=== PATIENT | female | born 2000 | race Caucasian/White ===

== ENCOUNTER 2024-01-01 03:08 | Emergency (ER) | payer OTHER, BC, SELFPAY ==
[2024-01-01] VITALS (12 sets, daily range): BP systolic 87–140; BP diastolic 50–68; PULSE 80–126; RESP 15–20; TEMP 36.5–37.1; O2SAT 95–100; BMI 23.6
[2024-01-01 06:03] LABS: Add Manual Diff / Slide Review NO; Basophils Absolute Auto 0 /uL (0-100); Basophils Percent Auto 0.2 % (0-2); Eosinophils Absolute Auto 0 /uL (0-450); Eosinophils Percent Auto 0.2 % (2-4); Hematocrit 38.1 % (36-46); Hemoglobin 12.7 g/dL (12.0-16.0); Lymphocytes Absolute Auto 500 /uL (1100-4500); Lymphocytes Percent Auto 4.4 % (25-40); Mean Corpuscular HGB Conc 33.3 % (30-36); Mean Corpuscular Hemoglobin 28.9 PG (26-34); Mean Corpuscular Volume 86.7 fL (80-100); Monocytes Absolute Auto 600 /uL (0-900); Monocytes Percent Auto 5.1 % (3-14); Neutrophils Absolute Auto 10300 /uL (1500-7000); Neutrophils Percent Auto 90.1 % (50-75); Platelet Count 352 X10^3/uL (150-400); Red Blood Cell Count 4.39 X10^6/uL (4.0-5.2); Red Cell Distribution Width 13.7 % (11.6-14.8); White Blood Cell Count 11.4 X10^3/uL (4.5-11.0)
[2024-01-01] MEDS: ONDANSETRON 4 MG/2 ML INJ IV (06:14)
[2024-01-01 06:20] LABS: Alanine Aminotransferase 17 IU/L (<35); Albumin Globulin Ratio 1.4 (1.0-2.8); Alkaline Phosphatase 65 U/L (38-126); Aspartate Aminotransferase 39 IU/L (14-36); Bilirubin Total 0.5 mg/dL (0.2-1.3); Blood Urea Nitrogen 5 mg/dL (7-17); Calcium 9.9 mg/dL (8.4-10.2); Carbon Dioxide 26 mmol/L (22-32); Chloride 107 mmol/L (98-107); Estimated Glomerular Filt Rate > 60 mL/min (>60); Globulin 3.5 g/dL (1.7-4.1); Glucose 125 mg/dL (70-100); HEMOLYSIS < 15 (0-50); Lipase 42 U/L (23-300); Potassium 3.6 mmol/L (3.4-5.1); Sodium 144 mmol/L (137-145); Total Protein 8.5 g/dL (6.3-8.2)
[2024-01-01] MEDS: diphenhydrAMINE 50 MG/ML VIAL 25 MG IV (06:30)
[2024-01-01] MEDS: SODIUM CHLORIDE 0.9% 1,000 ML 1000 ML IV (07:00)
--- NOTE | 2024-01-01 07:08 | ED.NAVMDI ---
HPI - Nausea/Vomiting/Diarrhea <Chidi Yun MD - Last Filed: 01/01/24 18:56> General Chief complaint: Nausea/Vomiting/Diarrhea Stated complaint: has CVS, has a protocol to follow Time Seen by Provider: 01/01/24 06:01 Source: patient Mode of arrival: Ambulatory History of Present Illness HPI Narrative: 23-year-old female with history of cyclic vomiting, has had problems with nausea and vomiting since age 9, visiting family friend from home state [facility] here in the [place], since yesterday has had repeated episodes of nausea and vomiting, no black or red color, no black or red stools. Symptoms seem typical of her usual cyclic vomiting exacerbation, where she usually has a regimen of Zofran and Benadryl, sometimes needs IV fluids, sometimes we will proceed to needing IV Ativan. She has a history of anaphylactoid reaction to Reglan. She denies cannabis use. She has seen specialists in the past in the [facility], upper endoscopy in the past, no other specific diagnosis known. She still has her gallbladder. She denies pain on urination, flank pain, bloody or dark urine. No injury trauma known. Related Data Previous Rx's Medication Instructions Recorded ondansetron 4 mg disintegrating 4 mg PO Q8H PRN nausea and 01/01/24 tablet vomiting 5 days #15 tabs Allergies Allergy/AdvReac Type Severity Reaction Status Date / Time metoclopramide [From Reglan] Allergy Anaphylaxis Verified 01/01/24 03:25 Review of Systems <Chidi Yun MD - Last Filed: 01/01/24 18:56> Review of Systems Narrative: per HPI Patient History <Chidi Yun MD - Last Filed: 01/01/24 18:56> Social History Smoking Status: Never smoker Smoking Status: Never smoker Substance Use Type: does not use Exam <Chidi Yun MD - Last Filed: 01/01/24 18:56> Narrative Exam Narrative: GENERAL: Well-developed patient, in mild distress. HEAD: Atraumatic. Normocephalic. EYES: Pupils equal round and reactive. Extraocular motions intact. No scleral icterus. No injection or drainage. ENT: Nose without bleeding, purulent drainage. Throat without erythema, tonsillar hypertrophy or exudate. Airway patent. NECK: Trachea midline. Non tender. Moves neck well without discomfort CARDIOVASCULAR: Fast rate and regular rhythm without murmurs, gallops, or rubs. RESPIRATORY: Clear to auscultation. Breath sounds equal bilaterally. No wheezes, rales, or rhonchi. GASTROINTESTINAL: Abdomen soft, non-tender, nondistended. EXTREMITIES: No edema or joint tenderness. BACK: Nontender without deformity or crepitance. No flank tenderness. NEURO: AOx3. Grossly nonfocal neuro exam SKIN: No rash or erythema of visible areas Initial Vital Signs Initial Vital Signs: Vital Signs Temperature 97.7 F 01/01/24 03:25 Pulse Rate 126 H 01/01/24 03:25 Respiratory Rate 15 01/01/24 03:25 Blood Pressure 140/68 01/01/24 03:25 Pulse Oximetry 97 01/01/24 03:25 Oxygen Delivery Method Room Air 01/01/24 03:25 <Orlando Pina DO - Last Filed: 01/01/24 12:42> Initial Vital Signs Initial Vital Signs: Vital Signs Temperature 97.7 F 01/01/24 03:25 Pulse Rate 126 H 01/01/24 03:25 Respiratory Rate 15 01/01/24 03:25 Blood Pressure 140/68 01/01/24 03:25 Pulse Oximetry 97 01/01/24 03:25 Oxygen Delivery Method Room Air 01/01/24 03:25 Course <Chidi Yun MD - Last Filed: 01/01/24 18:56> Orders Ordered: Discontinued Medications Diphenhydramine HCl (Diphenhydramine 50 Mg/Ml Vial) 25 mg IV NOW ONE Stop: 01/01/24 06:43 Last Admin: 01/01/24 06:30 Dose: 25 mg Documented By: KENDAL Famotidine (Famotidine 20 Mg/2 Ml Vial) 20 mg IV NOW LI Sodium Chloride (Normal Saline 0.9%) 1,000 mls @ 1,000 mls/hr IV BOLUS ONE Stop: 01/01/24 08:17 Last Infusion: 01/01/24 08:26 Dose: Infused Documented By: Admin: 01/01/24 07:00 Dose: 1,000 mls/hr Documented By: NicolaG Lorazepam (Lorazepam 0.5 Mg/0.25 Ml Syringe) 0.5 mg IV NOW ONE Stop: 01/01/24 06:57 Last Admin: 01/01/24 07:38 Dose: 0.5 mg Documented By: LUIS CARLOS Ondansetron HCl (Ondansetron 4 Mg Odt) 4 mg SL NOW ONE Stop: 01/01/24 05:31 Last Admin: 01/01/24 07:41 Dose: Not Given Documented By: KENDAL Ondansetron HCl (Ondansetron 4 Mg/2 Ml Inj) 4 mg IV NOW PRN PRN Reason: Nausea And Vomiting Last Admin: 01/01/24 06:14 Dose: 4 mg Documented By: CHARLEY Ondansetron HCl (Ondansetron 4 Mg Odt) 4 mg PO NOW PRN PRN Reason: Nausea And Vomiting Sodium Chloride (Sodium Chloride 0.9% 100 Ml) 1,000 ml IV NOW ONE Stop: 01/01/24 06:43 Last Admin: 01/01/24 07:45 Dose: Not Given Documented By: LUIS CARLOS Vital Signs Vital signs: Vital Signs - 8 hr 01/01/24 06:30 01/01/24 07:00 01/01/24 07:30 Temperature Pulse Rate 97 H 92 H 91 H Respiratory Rate Blood Pressure 105/60 108/65 102/55 L Pulse Oximetry 97 97 98 Oxygen Delivery Method Room Air Room Air Room Air 01/01/24 07:36 01/01/24 07:53 01/01/24 07:53 Temperature Pulse Rate 107 H 101 H Respiratory Rate Blood Pressure 103/52 L Pulse Oximetry 100 97 Oxygen Delivery Method 01/01/24 08:00 01/01/24 08:00 01/01/24 08:30 Temperature Pulse Rate 106 H 95 H Respiratory Rate Blood Pressure 96/50 L Pulse Oximetry 97 97 Oxygen Delivery Method 01/01/24 08:30 01/01/24 09:00 01/01/24 09:00 Temperature Pulse Rate 84 Respiratory Rate Blood Pressure 97/54 L 87/51 L Pulse Oximetry 95 Oxygen Delivery Method 01/01/24 09:30 01/01/24 09:31 01/01/24 09:31 Temperature Pulse Rate 80 Respiratory Rate Blood Pressure 116/55 L Pulse Oximetry 96 97 Oxygen Delivery Method 01/01/24 10:40 Temperature 98.7 F Pulse Rate Respiratory Rate 20 Blood Pressure 119/64 Pulse Oximetry 99 Oxygen Delivery Method Room Air <Orlando Pina DO - Last Filed: 01/01/24 12:42> Orders Ordered: Discontinued Medications Diphenhydramine HCl (Diphenhydramine 50 Mg/Ml Vial) 25 mg IV NOW ONE Stop: 01/01/24 06:43 Last Admin: 01/01/24 06:30 Dose: 25 mg Documented By: KENDAL Famotidine (Famotidine 20 Mg/2 Ml Vial) 20 mg IV NOW LI Sodium Chloride (Normal Saline 0.9%) 1,000 mls @ 1,000 mls/hr IV BOLUS ONE Stop: 01/01/24 08:17 Last Infusion: 01/01/24 08:26 Dose: Infused Documented By: LUIS CARLOS Admin: 01/01/24 07:00 Dose: 1,000 mls/hr Documented By: CHARLEY Lorazepam (Lorazepam 0.5 Mg/0.25 Ml Syringe) 0.5 mg IV NOW ONE Stop: 01/01/24 06:57 Last Admin: 01/01/24 07:38 Dose: 0.5 mg Documented By: LUIS CARLOS Ondansetron HCl (Ondansetron 4 Mg Odt) 4 mg SL NOW ONE Stop: 01/01/24 05:31 Last Admin: 01/01/24 07:41 Dose: Not Given Documented By: KENDAL Ondansetron HCl (Ondansetron 4 Mg/2 Ml Inj) 4 mg IV NOW PRN PRN Reason: Nausea And Vomiting Last Admin: 01/01/24 06:14 Dose: 4 mg Documented By: CHARLEY Ondansetron HCl (Ondansetron 4 Mg Odt) 4 mg PO NOW PRN PRN Reason: Nausea And Vomiting Sodium Chloride (Sodium Chloride 0.9% 100 Ml) 1,000 ml IV NOW ONE Stop: 01/01/24 06:43 Last Admin: 01/01/24 07:45 Dose: Not Given Documented By: LUIS CARLOS Vital Signs Vital signs: Vital Signs - 8 hr 01/01/24 06:30 01/01/24 07:00 01/01/24 07:30 Temperature Pulse Rate 97 H 92 H 91 H Respiratory Rate Blood Pressure 105/60 108/65 102/55 L Pulse Oximetry 97 97 98 Oxygen Delivery Method Room Air Room Air Room Air 01/01/24 07:36 01/01/24 07:53 01/01/24 07:53 Temperature Pulse Rate 107 H 101 H Respiratory Rate Blood Pressure 103/52 L Pulse Oximetry 100 97 Oxygen Delivery Method 01/01/24 08:00 01/01/24 08:00 01/01/24 08:30 Temperature Pulse Rate 106 H 95 H Respiratory Rate Blood Pressure 96/50 L Pulse Oximetry 97 97 Oxygen Delivery Method 01/01/24 08:30 01/01/24 09:00 01/01/24 09:00 Temperature Pulse Rate 84 Respiratory Rate Blood Pressure 97/54 L 87/51 L Pulse Oximetry 95 Oxygen Delivery Method 01/01/24 09:30 01/01/24 09:31 01/01/24 09:31 Temperature Pulse Rate 80 Respiratory Rate Blood Pressure 116/55 L Pulse Oximetry 96 97 Oxygen Delivery Method 01/01/24 10:40 Temperature 98.7 F Pulse Rate Respiratory Rate 20 Blood Pressure 119/64 Pulse Oximetry 99 Oxygen Delivery Method Room Air MDM - Nausea/Vomiting/Diarrhea <Chidi Yun MD - Last Filed: 01/01/24 18:56> Lab Data 01/01/24 05:53 01/01/24 05:53 Labs: Lab Results 01/01/24 01/01/24 Range/Units 05:53 06:06 WBC 11.4 H (4.5-11.0) X10^3/uL RBC 4.39 (4.0-5.2) X10^6/uL Hgb 12.7 (12.0-16.0) g/dL Hct 38.1 (36-46) % MCV 86.7 (80-100) fL MCH 28.9 (26-34) PG MCHC 33.3 (30-36) % RDW 13.7 (11.6-14.8) % Plt Count 352 (150-400) X10^3/uL Neut % (Auto) 90.1 H (50-75) % Lymph % (Auto) 4.4 L (25-40) % [place] % (Auto) 5.1 (3-14) % Eos % (Auto) 0.2 L (2-4) % Baso % (Auto) 0.2 (0-2) % Neut # (Auto) 39524 H (8945-5620) /uL Lymph # (Auto) 500 L (3672-5024) /uL [place] # (Auto) 600 (0-900) /uL Eos # (Auto) 0 (0-450) /uL Baso # (Auto) 0 (0-100) /uL Sodium 144 (137-145) mmol/L Potassium 3.6 (3.4-5.1) mmol/L Chloride 107 (98-107) mmol/L Carbon Dioxide 26 (22-32) mmol/L BUN 5 L (7-17) mg/dL Creatinine 0.71 (0.52-1.04) mg/dL Estimated GFR > 60 (>60) mL/min BUN/Creatinine Ratio 7.0 (6-22) Glucose 125 H (70-100) mg/dL Calcium 9.9 (8.4-10.2) mg/dL Total Bilirubin 0.5 (0.2-1.3) mg/dL AST 39 H (14-36) IU/L ALT 17 (<35) IU/L Alkaline Phosphatase 65 (38-126) U/L Total Protein 8.5 H (6.3-8.2) g/dL Albumin 5.0 (3.5-5.0) g/dL Globulin 3.5 (1.7-4.1) g/dL Albumin/Globulin Ratio 1.4 (1.0-2.8) Lipase 42 (23-300) U/L Chlamy pneumoniae PCR Not detected (Not Detect) Adenovirus (PCR) Not detected (Not Detect) B.parapertussis DNA PCR Not detected (Not Detecte) Coronavirus OC43 (PCR) Not detected (Not Detect) Coronavirus HKU1 (PCR) Not detected (Not Detect) Coronavirus 229E (PCR) Not detected (Not Detect) SARS-CoV-2 (PCR) Not detected (Not Detecte) Coronavirus NL63 (PCR) Not detected (Not Detect) Human Metapneumovir PCR Not detected (Not Detect) Influenza Type A (PCR) Not detected (Not Detect) Influenza Type B (PCR) Not detected (Not Detect) M. pneumoniae (PCR) Not detected (Not Detect) Parainfluenza 1 (PCR) Not detected (Not Detect) Parainfluenza 2 (PCR) Not detected (Not Detect) Parainfluenza 3 (PCR) Not detected (Not Detect) Parainfluenza 4 (PCR) Not detected (Not Detect) RSV (PCR) Not detected (Not Detect) Entero/Rhino (PCR) Detected H (Not Detect) Point of Care Testing Test Results Negative Urine Dip Bedside Urine Glucose Negative Bedside Urine Bilirubin - Negative Bedside Urine Ketone +++ 80 Urine Specific [place] 1.015 Bedside Urine Occult Blood - Negative Bedside Urine pH 6.5 Bedside Urine Protein - Negative Bedside Urine Urobilinogen - Negative Bedside Urine Nitrite - Negative Bedside Urine Leukocytes - Negative Esterase MDM Narrative Medical decision making narrative: 23-year-old female visiting from [place], history of cyclic vomiting syndrome, usual regimen for exacerbation includes Zofran and Benadryl, she has been taking Zofran at home, not helping, triage given Zofran oral, IV fluid bolus, IV Benadryl. Labs unremarkable. Patient still has persisting symptoms, IV Ativan additionally ordered. Further assess for resolution of nausea and vomiting, signed out to oncoming ED shift physician Dr. Yovani Pina: Received turned over. Review patient's history and physical exam. After medications here in the emergency department the patient is no longer vomiting. Was able to tolerate a small amount of oral intake. Will discharge patient home. <Orlando Pina, - Last Filed: 01/01/24 12:42> Lab Data Labs: Lab Results 01/01/24 01/01/24 Range/Units 05:53 06:06 WBC 11.4 H (4.5-11.0) X10^3/uL RBC 4.39 (4.0-5.2) X10^6/uL Hgb 12.7 (12.0-16.0) g/dL Hct 38.1 (36-46) % MCV 86.7 (80-100) fL MCH 28.9 (26-34) PG MCHC 33.3 (30-36) % RDW 13.7 (11.6-14.8) % Plt Count 352 (150-400) X10^3/uL Neut % (Auto) 90.1 H (50-75) % Lymph % (Auto) 4.4 L (25-40) % [place] % (Auto) 5.1 (3-14) % Eos % (Auto) 0.2 L (2-4) % Baso % (Auto) 0.2 (0-2) % Neut # (Auto) 20689 H (1350-5183) /uL Lymph # (Auto) 500 L (2568-4391) /uL [place] # (Auto) 600 (0-900) /uL Eos # (Auto) 0 (0-450) /uL Baso # (Auto) 0 (0-100) /uL Sodium 144 (137-145) mmol/L Potassium 3.6 (3.4-5.1) mmol/L Chloride 107 (98-107) mmol/L Carbon Dioxide 26 (22-32) mmol/L BUN 5 L (7-17) mg/dL Creatinine 0.71 (0.52-1.04) mg/dL Estimated GFR > 60 (>60) mL/min BUN/Creatinine Ratio 7.0 (6-22) Glucose 125 H (70-100) mg/dL Calcium 9.9 (8.4-10.2) mg/dL Total Bilirubin 0.5 (0.2-1.3) mg/dL AST 39 H (14-36) IU/L ALT 17 (<35) IU/L Alkaline Phosphatase 65 (38-126) U/L Total Protein 8.5 H (6.3-8.2) g/dL Albumin 5.0 (3.5-5.0) g/dL Globulin 3.5 (1.7-4.1) g/dL Albumin/Globulin Ratio 1.4 (1.0-2.8) Lipase 42 (23-300) U/L Chlamy pneumoniae PCR Not detected (Not Detect) Adenovirus (PCR) Not detected (Not Detect) B.parapertussis DNA PCR Not detected (Not Detecte) Coronavirus OC43 (PCR) Not detected (Not Detect) Coronavirus HKU1 (PCR) Not detected (Not Detect) Coronavirus 229E (PCR) Not detected (Not Detect) SARS-CoV-2 (PCR) Not detected (Not Detecte) Coronavirus NL63 (PCR) Not detected (Not Detect) Human Metapneumovir PCR Not detected (Not Detect) Influenza Type A (PCR) Not detected (Not Detect) Influenza Type B (PCR) Not detected (Not Detect) M. pneumoniae (PCR) Not detected (Not Detect) Parainfluenza 1 (PCR) Not detected (Not Detect) Parainfluenza 2 (PCR) Not detected (Not Detect) Parainfluenza 3 (PCR) Not detected (Not Detect) Parainfluenza 4 (PCR) Not detected (Not Detect) RSV (PCR) Not detected (Not Detect) Entero/Rhino (PCR) Detected H (Not Detect) Point of Care Testing Test Results Negative Urine Dip Bedside Urine Glucose Negative Bedside Urine Bilirubin - Negative Bedside Urine Ketone +++ 80 Urine Specific [place] 1.015 Bedside Urine Occult Blood - Negative Bedside Urine pH 6.5 Bedside Urine Protein - Negative Bedside Urine Urobilinogen - Negative Bedside Urine Nitrite - Negative Bedside Urine Leukocytes - Negative Esterase MDM Narrative Medical decision making narrative: 23-year-old female visiting from [place], history of cyclic vomiting syndrome, usual regimen for exacerbation includes Zofran and Benadryl, she has been taking Zofran at home, not helping, triage given Zofran oral, IV fluid bolus, IV Benadryl. Labs unremarkable. Patient still has persisting symptoms, IV Ativan additionally ordered. Further assess for resolution of nausea and vomiting, signed out to oncoming ED shift physician Dr. Yovani Pina: Received turned over. Review patient's history and physical exam. After medications here in the emergency department the patient is no longer vomiting. Was able to tolerate a small amount of oral intake. Will discharge patient home. Discharge Plan Departure Patient Disposition: Home Clinical Impression: Rhinovirus, Nausea and vomiting Instructions: DI for Nausea -- Adult, DI for Vomiting -- Adult Activity Restrictions/Additional Instructions: I do recommend that you eat a bland diet and try to increase the amount that you are drinking by drinking small amounts more frequently. Contact your primary provider for follow-up. Stand Alone Forms: Patient Portal/API
[2024-01-01] MEDS: LORazepam 0.5 MG/0.25 ML SYRINGE IV (07:38)
[2024-01-01 08:00] LABS: Adenovirus Not Detected (Not Detect); B. parapertussis Not Detected (Not Detecte); Bordetella pertussis Not Detected (Not Detect); Chlamydophila pneumoniae Not Detected (Not Detect); Coronavirus 229E Not Detected (Not Detect); Coronavirus HKU1 Not Detected (Not Detect); Coronavirus NL 63 Not Detected (Not Detect); Coronavirus OC43 Not Detected (Not Detect); Human Metapneumovirus Not Detected (Not Detect); Human Rhinovirus/Enterovirus Detected (Not Detect); Influenza A Not Detected (Not Detect); Influenza B Not Detected (Not Detect); Mycoplasma pneumoniae Not Detected (Not Detect); Parainfluenza Virus 1 Not Detected (Not Detect); Parainfluenza Virus 2 Not Detected (Not Detect); Parainfluenza Virus 3 Not Detected (Not Detect); Parainfluenza Virus 4 Not Detected (Not Detect); Respiratory Syncytial Virus Not Detected (Not Detect); SARS- CoV-2 Not Detected (Not Detecte)
== END 2024-01-01 10:41 | disposition home or self-care (01) ==
PROVIDERS: Emergency Medicine; Emergency Provider Emergency Medicine
DX: B34.8 Other viral infections of unspecified site (principal); R11.2 Nausea with vomiting, unspecified
CPT/HCPCS: 36415; 80053; 81003; 81025; 83690; 85025; 87633; J1200; J2060; J2405

== ENCOUNTER 2024-01-01 15:52 | Emergency (ER) | payer OTHER, SELFPAY ==
[2024-01-01 16:21] VITALS: BP 128/56; PULSE 89; RESP 18; TEMP 37.1; O2SAT 98; BMI 23.6
--- NOTE | 2024-01-01 16:35 | ED_ITS ---
HPI - Nausea/Vomiting/Diarrhea <NADEGE Gallegos Last Filed: 01/01/24 19:11> General Chief complaint: Nausea/Vomiting/Diarrhea Stated complaint: Cyclic vomitting syndrome Time Seen by Provider: 01/01/24 16:28 Source: patient Mode of arrival: Ambulatory History of Present Illness HPI Narrative: This is a 23-year-old female presents to emergency room due to continued nausea and vomiting. Patient was seen in the emergency department this morning due to sick vomiting. This is a very recurrent history for her. She states that she went home but was unable to swallow her own secretions she continued to vomit. She denies any new abdominal pain, fevers, or any other concerning signs or symptoms. Requesting IV fluids and IV medications. Related Data Previous Rx's Medication Instructions Recorded ondansetron 4 mg disintegrating 4 mg PO Q8H PRN nausea and 01/01/24 tablet vomiting 5 days #15 tabs Allergies Allergy/AdvReac Type Severity Reaction Status Date / Time metoclopramide [From Reglan] Allergy Anaphylaxis Verified 01/01/24 03:25 Review of Systems <NADEGE Gallegos Last Filed: 01/01/24 19:11> Review of Systems Narrative: GENERAL: Denies chills, fatigue, malaise, fever, sweats. HEENT: Denies sinus pain, ear pain, sore throat, difficulty swallowing, dizziness. RESPIRATORY: Denies dyspnea, cough, wheezing, hemoptysis, sputum. CARDIOVASCULAR: Denies chest pain, palpitations, orthopnea, edema, GASTROINTESTINAL: Reports nausea, vomiting, denies abdominal pain, diarrhea, constipation, melena. : Denies dysuria, frequency, incontinence, hematuria, urinary retention. MUSCULOSKELETAL: denies weakness, joint pain, or bony pain SKIN: Denies rash, skin lesions, or other NEUROLOGIC: Denies weakness, headache, numbness, change in speech, confusion, seizures, incoordination. PSYCHIATRIC: No concerning psychosocial issues. 12 point review of systems is negative except for those stated above Patient History <NADEGE Gallegos Last Filed: 01/01/24 19:11> Social History Smoking Status: Never smoker Smoking Status: Never smoker Substance Use Type: does not use Exam <NADEGE Gallegos Filed: 01/01/24 19:11> Narrative Exam Narrative: GENERAL: Well-developed patient, in mild distress. HEAD: Atraumatic. Normocephalic. EYES: Pupils equal round and reactive. Extraocular motions intact. No scleral icterus. No injection or drainage. ENT: Nose without bleeding, purulent drainage. Throat without erythema, tonsillar hypertrophy or exudate. Airway patent. NECK: Trachea midline. Non tender EXTREMITIES: No edema or joint tenderness. NEURO: AOx3. SKIN: No rash or erythema of visible areas Abdomen: Generalized mild tenderness to palpation Initial Vital Signs Initial Vital Signs: Vital Signs Temperature 98.7 F 01/01/24 16:21 Pulse Rate 89 01/01/24 16:21 Respiratory Rate 18 01/01/24 16:21 Blood Pressure 128/56 L 01/01/24 16:21 Pulse Oximetry 98 01/01/24 16:21 Oxygen Delivery Method Room Air 01/01/24 16:21 <Orlando Pina DO - Last Filed: 01/02/24 06:59> Initial Vital Signs Initial Vital Signs: Vital Signs Temperature 98.7 F 01/01/24 16:21 Pulse Rate 89 01/01/24 16:21 Respiratory Rate 18 01/01/24 16:21 Blood Pressure 128/56 L 01/01/24 16:21 Pulse Oximetry 98 01/01/24 16:21 Oxygen Delivery Method Room Air 01/01/24 16:21 Course <iGno Small PA-C - Last Filed: 01/01/24 19:11> Orders Ordered: Discontinued Medications Diphenhydramine HCl (Diphenhydramine 50 Mg/Ml Vial) 25 mg IV NOW ONE Stop: 01/01/24 17:02 Last Admin: 01/01/24 17:37 Dose: 25 mg Documented By: JACOBO Sodium Chloride (Normal Saline 0.9%) 1,000 mls @ 1,000 mls/hr IV BOLUS ONE Stop: 01/01/24 18:00 Last Infusion: 01/01/24 18:44 Dose: Infused Documented By: Admin: 01/01/24 17:36 Dose: 1,000 mls/hr Documented By: JACOBO Lorazepam (Lorazepam 2 Mg/Ml Inj) 0.5 mg IV NOW ONE Stop: 01/01/24 17:02 Last Admin: 01/01/24 18:30 Dose: 0.5 mg Documented By: NANETTE Ondansetron HCl (Ondansetron 4 Mg/2 Ml Inj) 4 mg IV NOW ONE Stop: 01/01/24 17:22 Last Admin: 01/01/24 17:37 Dose: 4 mg Documented By: JACOBO Vital Signs Vital signs: Vital Signs - 8 hr 01/01/24 16:21 01/01/24 18:21 01/01/24 18:45 Temperature 98.7 F Pulse Rate 89 97 H 90 Respiratory Rate 18 20 18 Blood Pressure 128/56 L 100/62 106/57 L Pulse Oximetry 98 100 98 Oxygen Delivery Method Room Air Room Air Room Air <Orlando Pina DO - Last Filed: 01/02/24 06:59> Orders Ordered: Discontinued Medications Diphenhydramine HCl (Diphenhydramine 50 Mg/Ml Vial) 25 mg IV NOW ONE Stop: 01/01/24 17:02 Last Admin: 01/01/24 17:37 Dose: 25 mg Documented By: JACOBO Sodium Chloride (Normal Saline 0.9%) 1,000 mls @ 1,000 mls/hr IV BOLUS ONE Stop: 01/01/24 18:00 Last Infusion: 01/01/24 18:44 Dose: Infused Documented By: Admin: 01/01/24 17:36 Dose: 1,000 mls/hr Documented By: JACOBO Lorazepam (Lorazepam 2 Mg/Ml Inj) 0.5 mg IV NOW ONE Stop: 01/01/24 17:02 Last Admin: 01/01/24 18:30 Dose: 0.5 mg Documented By: NANETTE Ondansetron HCl (Ondansetron 4 Mg/2 Ml Inj) 4 mg IV NOW ONE Stop: 01/01/24 17:22 Last Admin: 01/01/24 17:37 Dose: 4 mg Documented By: JACOBO Vital Signs Vital signs: Vital Signs - 8 hr 01/01/24 16:21 01/01/24 18:21 01/01/24 18:45 Temperature 98.7 F Pulse Rate 89 97 H 90 Respiratory Rate 18 20 18 Blood Pressure 128/56 L 100/62 106/57 L Pulse Oximetry 98 100 98 Oxygen Delivery Method Room Air Room Air Room Air MDM - Nausea/Vomiting/Diarrhea <Gino Small PA-C - Last Filed: 01/01/24 19:11> Lab Data 01/01/24 17:22 01/01/24 17:22 Labs: Lab Results 01/01/24 Range/Units 17:22 WBC 9.8 (4.5-11.0) X10^3/uL RBC 3.90 L (4.0-5.2) X10^6/uL Hgb 11.6 L (12.0-16.0) g/dL Hct 33.9 L (36-46) % MCV 87.0 (80-100) fL MCH 29.7 (26-34) PG MCHC 34.1 (30-36) % RDW 13.8 (11.6-14.8) % Plt Count 342 (150-400) X10^3/uL Neut % (Auto) 82.8 H (50-75) % Lymph % (Auto) 8.4 L (25-40) % [place] % (Auto) 8.5 (3-14) % Eos % (Auto) 0.1 L (2-4) % Baso % (Auto) 0.2 (0-2) % Neut # (Auto) 8100 H (6922-2295) /uL Lymph # (Auto) 800 L (5525-5872) /uL [place] # (Auto) 800 (0-900) /uL Eos # (Auto) 0 (0-450) /uL Baso # (Auto) 0 (0-100) /uL Sodium 145 (137-145) mmol/L Potassium 3.6 (3.4-5.1) mmol/L Chloride 109 H (98-107) mmol/L Carbon Dioxide 26 (22-32) mmol/L BUN 4 L (7-17) mg/dL Creatinine 0.68 (0.52-1.04) mg/dL Estimated GFR > 60 (>60) mL/min BUN/Creatinine Ratio 5.9 L (6-22) Glucose 97 (70-100) mg/dL Calcium 9.1 (8.4-10.2) mg/dL Total Bilirubin 0.4 (0.2-1.3) mg/dL AST 45 H (14-36) IU/L ALT 16 (<35) IU/L Alkaline Phosphatase 53 (38-126) U/L Total Protein 7.7 (6.3-8.2) g/dL Albumin 4.6 (3.5-5.0) g/dL Globulin 3.1 (1.7-4.1) g/dL Albumin/Globulin Ratio 1.5 (1.0-2.8) Lipase 25 (23-300) U/L [facility] Narrative Medical decision making narrative: ED course: This is a 23-year-old female with a history of cyclic vomiting syndrome returning to the emergency department after being seen this morning due to continued nausea and vomiting. Patient was nausea and vomiting was eventually controlled with IV Ativan, Benadryl, and Zofran. Patient lab work was reassuring. She will be discharged with ondansetron ODT tablets that she should be able to tolerate to control her nausea and vomiting. Patient declined ice chips and elected to be discharged with a friend. CC: Nausea and vomiting Complicating co-morbidities: History of cyclic vomiting syndrome Data collected from: Previous notes Medical records reviewed: Patient was seen this morning due to nausea vomiting diarrhea. History of cyclic vomiting syndrome. Has a regimen of Zofran, Benadryl,. History of anaphylaxis to Reglan. Denies cannabis use. Has seen specialists but no confirmed diagnosis. Still has a gallbladder. Patient was given Benadryl, famotidine, normal saline, Ativan, Zofran. Patient was eventually discharged diagnosis with rhinovirus Differential considered, but not limited to: Cyclic vomiting syndrome Exam documented above, pertinent findings include: Moderate generalized tenderness to palpation suspected to be due to nausea or vomiting Lab Test results independently reviewed as above. Pertinent findings: CBC and CMP unremarkable Imaging studies independently reviewed: Not obtained Scores Used: None MIPS Elements: None Consultations: None Treatments: IV Ativan, Benadryl, Zofran Re-evaluations: Patient reports feeling better after medications given Discussion: Discussed plan with the patient was comfortable with the plan Diagnosis: Cyclic vomiting syndrome Disposition: see below, along with detailed discharge instructions that have been reviewed with patient as well as indications for ED re-evaluation and additional outpatient follow up <Orlando Pina DO - Last Filed: 01/02/24 06:59> Lab Data Labs: Lab Results 01/01/24 Range/Units 17:22 WBC 9.8 (4.5-11.0) X10^3/uL RBC 3.90 L (4.0-5.2) X10^6/uL Hgb 11.6 L (12.0-16.0) g/dL Hct 33.9 L (36-46) % MCV 87.0 (80-100) fL MCH 29.7 (26-34) PG MCHC 34.1 (30-36) % RDW 13.8 (11.6-14.8) % Plt Count 342 (150-400) X10^3/uL Neut % (Auto) 82.8 H (50-75) % Lymph % (Auto) 8.4 L (25-40) % [place]ster % (Auto) 8.5 (3-14) % Eos % (Auto) 0.1 L (2-4) % Baso % (Auto) 0.2 (0-2) % Neut # (Auto) 8100 H (7658-6587) /uL Lymph # (Auto) 800 L (3676-0191) /uL [place]ster # (Auto) 800 (0-900) /uL Eos # (Auto) 0 (0-450) /uL Baso # (Auto) 0 (0-100) /uL Sodium 145 (137-145) mmol/L Potassium 3.6 (3.4-5.1) mmol/L Chloride 109 H (98-107) mmol/L Carbon Dioxide 26 (22-32) mmol/L BUN 4 L (7-17) mg/dL Creatinine 0.68 (0.52-1.04) mg/dL Estimated GFR > 60 (>60) mL/min BUN/Creatinine Ratio 5.9 L (6-22) Glucose 97 (70-100) mg/dL Calcium 9.1 (8.4-10.2) mg/dL Total Bilirubin 0.4 (0.2-1.3) mg/dL AST 45 H (14-36) IU/L ALT 16 (<35) IU/L Alkaline Phosphatase 53 (38-126) U/L Total Protein 7.7 (6.3-8.2) g/dL Albumin 4.6 (3.5-5.0) g/dL Globulin 3.1 (1.7-4.1) g/dL Albumin/Globulin Ratio 1.5 (1.0-2.8) Lipase 25 (23-300) U/L Discharge Plan Departure Patient Disposition: Home Clinical Impression: Nausea and vomiting Instructions: DI for Vomiting -- Adult Activity Restrictions/Additional Instructions: Thank you for coming to the [facility] Emergency Department today. The ondansetron ODT tablets should be able to be dissolved and should help with your nausea and vomiting. Your lab work today was reassuring. Please return to the emergency department if you develop any significant abdominal pain or any other concerning signs or symptoms. I hope you feel better soon. Please follow up with your primary care provider within a week if your symptoms continue. If you do not have a primary care provider please contact the [facility] Resource line at [phone]. They will ask some questions about your medical history and help you get set up with a provider in the community. Prescriptions: New ondansetron 4 mg tablet,disintegrating 4 mg PO Q8H PRN (Reason: nausea and vomiting) 5 Days Qty: 15 0RF Stand Alone Forms: Patient Portal/API ED Sign-out <Orlando Pina, DO - Last Filed: 01/02/24 06:59> Cosign ED Attending Cosignature Attestation: Dr Pina Co-Sign Statement: I was available for consultation during this patient's emergency department visit. This chart is signed by myself for administrative purposes only. I did not have direct contact with this patient during this visit. They were seen independently by the APC.
--- NOTE | 2024-01-01 17:09 | EKG_ITS ---
[address] [address] Test Date: 2024-01-01 Pat Name: Eveline Uriarte Department: Room: Gender: Female Dealership Manager: PAUL : 2000 Requested By: Order Number: [id number] Reading MD: Tavo Mtz MD Measurements Intervals [place] Rate: 105 P: 69 LA: 158 QRS: 76 QRSD: 88 T: 9 QT: 336 QTc: 444 Interpretive Statements Sinus tachycardia Electronically Signed On 01-02-2024 7:55:17 PDT by Tavo Mtz MD
[2024-01-01] MEDS: SODIUM CHLORIDE 0.9% 1,000 ML 1000 ML IV (17:36)
[2024-01-01] MEDS: ONDANSETRON 4 MG/2 ML INJ IV (17:37)
[2024-01-01] MEDS: diphenhydrAMINE 50 MG/ML VIAL 25 MG IV (17:37)
[2024-01-01 17:38] LABS: Add Manual Diff / Slide Review NO; Basophils Absolute Auto 0 /uL (0-100); Basophils Percent Auto 0.2 % (0-2); Eosinophils Absolute Auto 0 /uL (0-450); Eosinophils Percent Auto 0.1 % (2-4); Hematocrit 33.9 % (36-46); Hemoglobin 11.6 g/dL (12.0-16.0); Lymphocytes Absolute Auto 800 /uL (1100-4500); Lymphocytes Percent Auto 8.4 % (25-40); Mean Corpuscular HGB Conc 34.1 % (30-36); Mean Corpuscular Hemoglobin 29.7 PG (26-34); Monocytes Absolute Auto 800 /uL (0-900); Monocytes Percent Auto 8.5 % (3-14); Neutrophils Absolute Auto 8100 /uL (1500-7000); Neutrophils Percent Auto 82.8 % (50-75); Platelet Count 342 X10^3/uL (150-400); Red Cell Distribution Width 13.8 % (11.6-14.8); White Blood Cell Count 9.8 X10^3/uL (4.5-11.0)
[2024-01-01 17:52] LABS: Alanine Aminotransferase 16 IU/L (<35); Albumin 4.6 g/dL (3.5-5.0); Albumin Globulin Ratio 1.5 (1.0-2.8); Alkaline Phosphatase 53 U/L (38-126); Aspartate Aminotransferase 45 IU/L (14-36); BUN Creatinine Ratio 5.9 (6-22); Bilirubin Total 0.4 mg/dL (0.2-1.3); Blood Urea Nitrogen 4 mg/dL (7-17); Calcium 9.1 mg/dL (8.4-10.2); Carbon Dioxide 26 mmol/L (22-32); Chloride 109 mmol/L (98-107); Estimated Glomerular Filt Rate > 60 mL/min (>60); Globulin 3.1 g/dL (1.7-4.1); Glucose 97 mg/dL (70-100); HEMOLYSIS < 15 (0-50); Lipase 25 U/L (23-300); Potassium 3.6 mmol/L (3.4-5.1); Sodium 145 mmol/L (137-145); Total Protein 7.7 g/dL (6.3-8.2)
[2024-01-01 18:21] VITALS: BP 100/62; PULSE 97; RESP 20; O2SAT 100
--- NOTE | 2024-01-01 18:27 | PC.NURSE ---
1745: JOHN Rea to get ativan as [facility] does not have any at the present time.
[2024-01-01] MEDS: LORazepam 2 MG/ML INJ 0.5 MG IV (18:30)
[2024-01-01 18:45] VITALS: BP 106/57; PULSE 90; RESP 18; O2SAT 98
[2024-01-01 19:19] VITALS: TEMP 37.3
== END 2024-01-01 19:20 | disposition home or self-care (01) ==
PROVIDERS: Emergency Provider Physician Assistant Medical
DX: B34.8 Other viral infections of unspecified site (principal); R11.2 Nausea with vomiting, unspecified
CPT/HCPCS: 36415; 80053; 81003; 81025; 83690; 85025; 87633; 93005; 93010; 96374; 96375; 96376; 99284; J1200; J2060; J2405